=== PATIENT | female | born 1990 | race Caucasian/White ===

== ENCOUNTER 2017-05-25 14:59 | Emergency (ER) | payer MEDICAID ==
[~2017-05-25] VITALS: Ht 149.9 cm; Wt 67.0 kg
[2017-05-25] MEDS ORDERED: normal saline 1000ML IV soln IVB ONE (16:25)
[2017-05-25 16:47] LABS: BASOPHILS % (AUTO) 0.3 % (0-1); EOSINOPHILS # (AUTO) 0.1 X10'3 (0-0.9); EOSINOPHILS % (AUTO) 1.7 % (0-6); HEMATOCRIT 41.8 % (35.0-45.0); HEMOGLOBIN 14.4 g/dl (12.0-16.0); LYMPHOCYTES # (AUTO) 2.3 X10'3 (1.1-4.8); LYMPHOCYTES % (AUTO) 32.2 % (21-51); MEAN CORPUSCULAR HEMOGLOBIN 31.4 PG (27.0-31.0); MEAN CORPUSCULAR HGB CONC 34.6 % (33.0-36.5); MEAN CORPUSCULAR VOLUME 90.9 FL (78-98); MEAN PLATELET VOLUME 6.9 FL (7.4-10.4); MONOCYTES # (AUTO) 0.4 X10'3 (0-0.9); MONOCYTES % (AUTO) 5.1 % (2-12); NEUTROPHILS # (AUTO) 4.3 X10'3 (1.8-7.7); NEUTROPHILS % (AUTO) 60.7 % (42-75); PLATELET COUNT 322 X10'3 (140-440); RED BLOOD COUNT 4.59 X10'6 (4.20-5.60); RED CELL DISTRIBUTION WIDTH 12.4 % (11.5-14.5)
[2017-05-25 17:00] LABS: CLARITY,URINE CLEAR (Clear); COLOR,URINE YELLOW (Yellow); GLUCOSE, URINE NEGATIVE (Neg); KETONES,URINE NEGATIVE (Neg); LEUKOCYTE ESTERASE ,URINE SMALL (Neg); NITRITES, URINE NEGATIVE (Neg); OCCULT BLOOD,URINE LARGE (Neg); PH,URINE 6.5 (4.8-8.0); PROTEIN,URINE NEGATIVE (Neg); UROBILINOGEN,URINE 0.2 E.U/dL (0.2-1.0)
[2017-05-25 17:01] LABS: URINE HCG NEGATIVE (NEG)
[2017-05-25 17:02] LABS: ALANINE AMINOTRANSFERASE 32 U/L (12-78); ALBUMIN 4.8 G/DL (3.4-5.0); ALBUMIN/GLOBULIN RATIO 1.3 (1.1-1.5); ALKALINE PHOSPHATASE 85 IU/L (46-116); ANION GAP 14 (8-16); ASPARTATE AMINO TRANSFERASE 23 U/L (10-37); BILIRUBIN,TOTAL 0.3 MG/DL (0.1-1.0); BLOOD UREA NITROGEN 10 MG/DL (7-18); BUN/CREATININE RATIO 13.5 (6.6-38.0); CALCIUM 10.3 MG/DL (8.5-10.1); CHLORIDE 103 MMOL/L (99-107); CREATININE 0.74 MG/DL (0.40-0.90); GLUCOSE 100 MG/DL (70-104); LIPASE 185 U/L (73-393); SODIUM 142 MMOL/L (135-145); TOTAL CARBON DIOXIDE 25.4 MMOL/L (24-32); TOTAL PROTEIN 8.4 G/DL (6.4-8.2); eGFR > 90 ML/MIN
[2017-05-25 17:05] LABS: UA COLLECTION TYPE CLN CATCH MIDSTREAM
[2017-05-25 17:06] LABS: BACTERIA,URINE NONE SEEN /HPF (Neg); MUCUS STRANDS FEW /LPF (Neg); RBC,URINE 0-2 /HPF (0-2); SQUAMOUS EPITHELIAL CELL,UR MODERATE /LPF (FEW); WBC,URINE 0-4 /HPF (0-4)
[2017-05-25] MEDS ORDERED: ketorolac trometh. 30mg/ml inj. IV ONE (17:50)
[2017-05-25] MEDS ORDERED: ketorolac tromethamine 15mg/ml inj. IV ONE (17:50)
[2017-05-25] MEDS ORDERED: NAPR-56 PO (18:36)
[2017-05-25 19:01] VITALS: BP 130/88
== END 2017-05-25 19:02 | disposition home or self-care (01) ==
LOC: ER 15:00
DX: N94.6 Dysmenorrhea, unspecified (principal)
CPT/HCPCS: 36415; 80053; 81001; 81025; 83690; 85025; 87088; 96361; 96374; 99284; J1885; J7030

== ENCOUNTER 2017-12-19 18:07 | Emergency (ER) | payer MEDICAID ==
[~2017-12-19] VITALS: Ht 502.6 cm; Wt 71.0 kg
[2017-12-19 19:28] LABS: URINE HCG NEGATIVE (NEG)
[2017-12-19 19:31] LABS: CLARITY,URINE CLEAR (Clear); COLOR,URINE YELLOW (Yellow); GLUCOSE, URINE NEGATIVE (Neg); KETONES,URINE NEGATIVE (Neg); LEUKOCYTE ESTERASE ,URINE NEGATIVE (Neg); NITRITES, URINE NEGATIVE (Neg); OCCULT BLOOD,URINE NEGATIVE (Neg); PH,URINE 6.5 (4.8-8.0); PROTEIN,URINE NEGATIVE (Neg); UROBILINOGEN,URINE 0.2 E.U/dL (0.2-1.0)
[2017-12-19 19:34] LABS: UA COLLECTION TYPE CLN CATCH MIDSTREAM
[2017-12-19 21:10] LABS: BASOPHILS % (AUTO) 0.5 % (0-1); EOSINOPHILS # (AUTO) 0.1 X10'3 (0-0.9); EOSINOPHILS % (AUTO) 1.8 % (0-6); HEMATOCRIT 39.5 % (35.0-45.0); HEMOGLOBIN 13.7 g/dl (12.0-16.0); LYMPHOCYTES # (AUTO) 2.9 X10'3 (1.1-4.8); LYMPHOCYTES % (AUTO) 35.5 % (21-51); MEAN CORPUSCULAR HEMOGLOBIN 31.8 PG (27.0-31.0); MEAN CORPUSCULAR HGB CONC 34.8 % (33.0-36.5); MEAN CORPUSCULAR VOLUME 91.5 FL (78-98); MEAN PLATELET VOLUME 6.6 FL (7.4-10.4); MONOCYTES # (AUTO) 0.4 X10'3 (0-0.9); MONOCYTES % (AUTO) 5.2 % (2-12); NEUTROPHILS # (AUTO) 4.6 X10'3 (1.8-7.7); PLATELET COUNT 298 X10'3 (140-440); RED BLOOD COUNT 4.32 X10'6 (4.20-5.60); RED CELL DISTRIBUTION WIDTH 12.2 % (11.5-14.5); WHITE BLOOD COUNT 8.1 X10'3 (4.5-11.0)
[2017-12-19 21:23] LABS: PARTIAL THROMBOPLASTIN TIME 28 SECONDS (22-32); PROTHROMBIN TIME 10.6 SECONDS (9.0-12.0)
[2017-12-19 21:26] LABS: ALANINE AMINOTRANSFERASE 22 U/L (12-78); ALBUMIN 3.9 G/DL (3.4-5.0); ALBUMIN/GLOBULIN RATIO 1.1 (1.1-1.5); ALKALINE PHOSPHATASE 90 IU/L (46-116); ANION GAP 10 (8-16); ASPARTATE AMINO TRANSFERASE 23 U/L (10-37); BILIRUBIN,TOTAL 0.2 MG/DL (0.1-1.0); BLOOD UREA NITROGEN 15 MG/DL (7-18); CALCIUM 9.1 MG/DL (8.5-10.1); CHLORIDE 103 MMOL/L (99-107); CREATININE 0.79 MG/DL (0.40-0.90); GLUCOSE 96 MG/DL (70-104); POTASSIUM 3.8 MMOL/L (3.5-5.1); SODIUM 140 MMOL/L (135-145); TOTAL CARBON DIOXIDE 27.1 MMOL/L (24-32); TOTAL PROTEIN 7.4 G/DL (6.4-8.2); eGFR 87 ML/MIN
[2017-12-19 21:32] LABS: BETA HCG,QUANTITATIVE < 1.0 mIU/ml
[2017-12-19 22:06] VITALS: BP 156/108
== END 2017-12-19 22:09 | disposition home or self-care (01) ==
LOC: ER 18:08
DX: O03.9 Complete or unspecified spontaneous abortion without complication (principal); Z98.890 Other specified postprocedural states; Z3A.09 9 weeks gestation of pregnancy
CPT/HCPCS: 36415; 80053; 81003; 81025; 84702; 85025; 85610; 85730; 86900; 86901; 99284

== ENCOUNTER 2020-04-13 14:48 | Emergency (ER) | payer MEDICAID ==
[~2020-04-13] VITALS: Ht 149.9 cm; Wt 160.0 kg
[2020-04-13 14:55] VITALS: BP 150/115
[2020-04-13 17:02] LABS: BASOPHILS # (AUTO) 0.1 X10'3 (0-0.2); BASOPHILS % (AUTO) 0.6 % (0-1); EOSINOPHILS # (AUTO) 0.2 X10'3 (0-0.9); EOSINOPHILS % (AUTO) 1.9 % (0-6); HEMATOCRIT 37.4 % (35.0-45.0); HEMOGLOBIN 12.9 g/dl (12.0-16.0); LYMPHOCYTES # (AUTO) 3.8 X10'3 (1.1-4.8); LYMPHOCYTES % (AUTO) 42.6 % (21-51); MEAN CORPUSCULAR HEMOGLOBIN 31.9 PG (27.0-31.0); MEAN CORPUSCULAR HGB CONC 34.5 g/dL (33.0-36.5); MEAN CORPUSCULAR VOLUME 92.7 FL (78-98); MEAN PLATELET VOLUME 6.5 FL (7.4-10.4); MONOCYTES # (AUTO) 0.7 X10'3 (0-0.9); MONOCYTES % (AUTO) 7.3 % (2-12); NEUTROPHILS # (AUTO) 4.2 X10'3 (1.8-7.7); NEUTROPHILS % (AUTO) 47.6 % (42-75); PLATELET COUNT 296 X10'3 (140-440); RED BLOOD COUNT 4.03 X10'6 (4.20-5.60); RED CELL DISTRIBUTION WIDTH 14.5 % (11.5-14.5); WHITE BLOOD COUNT 8.9 X10'3 (4.5-11.0)
[2020-04-13 17:19] LABS: ALANINE AMINOTRANSFERASE 35 U/L (12-78); ALBUMIN 3.8 G/DL (3.4-5.0); ALBUMIN/GLOBULIN RATIO 1.2 (1.1-1.5); ALKALINE PHOSPHATASE 96 IU/L (46-116); ANION GAP 9 (8-16); ASPARTATE AMINO TRANSFERASE 17 U/L (10-37); BILIRUBIN,TOTAL 0.2 MG/DL (0.1-1.0); BLOOD UREA NITROGEN 14 MG/DL (7-18); BUN/CREATININE RATIO 21.5 (6.6-38.0); CALCIUM 8.5 MG/DL (8.5-10.1); CHLORIDE 106 MMOL/L (99-107); CREATININE 0.65 MG/DL (0.40-0.90); GLUCOSE 85 MG/DL (70-104); POTASSIUM 4.1 MMOL/L (3.5-5.1); SODIUM 139 MMOL/L (135-145); TOTAL CARBON DIOXIDE 24.5 MMOL/L (24-32); TOTAL PROTEIN 7.1 G/DL (6.4-8.2); eGFR > 90 ML/MIN
== END 2020-04-13 19:37 | disposition left against medical advice (07) ==
LOC: ER 14:48
DX: R10.30 Lower abdominal pain, unspecified (principal); Z53.21 Procedure and treatment not carried out due to patient leaving prior to being seen by health care provider
CPT/HCPCS: 36415; 80053; 85025

== ENCOUNTER 2020-10-04 12:52 | Inpatient (IN) | payer MEDICAID ==
[~2020-10-04] VITALS: Ht 149.9 cm; Wt 71.8 kg
[2020-10-04 13:59] LABS: CLARITY,URINE SLIGHTLY CLOUDY (Clear); COLOR,URINE STRAW (Yellow); GLUCOSE, URINE NEGATIVE (Neg); KETONES,URINE NEGATIVE (Neg); LEUKOCYTE ESTERASE ,URINE NEGATIVE (Neg); NITRITES, URINE NEGATIVE (Neg); OCCULT BLOOD,URINE NEGATIVE (Neg); PROTEIN,URINE NEGATIVE (Neg); UA COLLECTION TYPE CLN CATCH MIDSTREAM; UROBILINOGEN,URINE 0.2 E.U/dL (0.2-1.0)
[2020-10-04 14:07] LABS: SQUAMOUS EPITHELIAL CELL,UR MODERATE /LPF (FEW)
[2020-10-04 14:08] LABS: BACTERIA,URINE FEW /HPF (Neg); RBC,URINE NONE SEEN /HPF (0-2); WBC,URINE 0-4 /HPF (0-4)
[2020-10-04 15:06] LABS: ALANINE AMINOTRANSFERASE 48 U/L (12-78); ALBUMIN 4.2 G/DL (3.4-5.0); ALBUMIN/GLOBULIN RATIO 1.1 (1.1-1.5); ALKALINE PHOSPHATASE 128 IU/L (46-116); ANION GAP 9 (8-16); ASPARTATE AMINO TRANSFERASE 30 U/L (10-37); BILIRUBIN,TOTAL 0.3 MG/DL (0.1-1.0); BLOOD UREA NITROGEN 15 MG/DL (7-18); BUN/CREATININE RATIO 20.8 (6.6-38.0); CALCIUM 8.7 MG/DL (8.5-10.1); CHLORIDE 104 MMOL/L (99-107); CREATININE 0.72 MG/DL (0.40-0.90); GLUCOSE 85 MG/DL (70-104); LIPASE 140 U/L (73-393); POTASSIUM 4.2 MMOL/L (3.5-5.1); SODIUM 139 MMOL/L (135-145); TOTAL CARBON DIOXIDE 26.4 MMOL/L (24-32); TOTAL PROTEIN 7.9 G/DL (6.4-8.2); eGFR > 90 ML/MIN
[2020-10-04 15:07] LABS: BASOPHILS % (AUTO) 0.6 % (0-1); EOSINOPHILS # (AUTO) 0.2 X10'3 (0-0.9); EOSINOPHILS % (AUTO) 3.2 % (0-6); HEMATOCRIT 37.7 % (35.0-45.0); HEMOGLOBIN 12.8 g/dl (12.0-16.0); LYMPHOCYTES # (AUTO) 2.7 X10'3 (1.1-4.8); LYMPHOCYTES % (AUTO) 37.2 % (21-51); MEAN CORPUSCULAR HEMOGLOBIN 30.8 PG (27.0-31.0); MEAN CORPUSCULAR VOLUME 90.7 FL (78-98); MEAN PLATELET VOLUME 6.8 FL (7.4-10.4); MONOCYTES # (AUTO) 0.4 X10'3 (0-0.9); NEUTROPHILS # (AUTO) 3.9 X10'3 (1.8-7.7); PLATELET COUNT 282 X10'3 (140-440); RED BLOOD COUNT 4.15 X10'6 (4.20-5.60); RED CELL DISTRIBUTION WIDTH 13.1 % (11.5-14.5); WHITE BLOOD COUNT 7.2 X10'3 (4.5-11.0)
--- NOTE | 2020-10-04 15:14 | NUR ---
pt to room, assumed care.
[2020-10-04] MEDS ORDERED: ondansetron/PF 4mg/2ml inj IV ONE ×2 (15:25→19:15)
[2020-10-04] MEDS ORDERED: normal saline 1000ML IV soln IVB ONE (15:25)
[2020-10-04] MEDS: morphine 4 MG/ML inj SYRINge IV PRN ×2 (15:35→18:27)
[2020-10-04] MEDS ORDERED: iohexol 350MG/ML 100ml bottle IV ONE (15:50)
[2020-10-04] MEDS ORDERED: fentaNYL/PF 50MCG/1 ML 2ML syringe IV ONE ×2 (17:20→19:15)
[2020-10-04] MEDS ORDERED: ALBU8.5H8 IH (17:41)
[2020-10-04] MEDS ORDERED: ALPR2TAB7 PO (17:41)
[2020-10-04] MEDS ORDERED: TRAZ-256 PO (17:41)
[2020-10-04] MEDS ORDERED: magnesium 4gm in 100ml NS 100 ML IV PRN (19:40)
[2020-10-04] MEDS ORDERED: bisacodyl 10mg suppository rectal RC PRN (19:40)
[2020-10-04] MEDS ORDERED: magnesium 2GM in 50ml NS 50 ML IV PRN (19:40)
[2020-10-04] MEDS ORDERED: HYDROmorphone inj. 0.5 MG/0.5 ML DISP.SYRIN IV PRN ×2 (19:40→20:55)
[2020-10-04] MEDS ORDERED: potassium Cl 20 mEq SR tablet PO PRN ×2 (19:40)
[2020-10-04] MEDS ORDERED: potassium Cl 40MEQ/1/2NS 520ml 520 ML IV PRN ×2 (19:40)
[2020-10-04] MEDS ORDERED: acetaminophen 325mg tablet PO PRN (19:40)
[2020-10-04] MEDS: normal saline 1000ml 1,000 ML IV SCH (19:58)
[2020-10-04] MEDS: K and/or MAG REPLACEMENT MC SCH (20:00)
[2020-10-04] MEDS: vancomycin/NS 1 GM ADD-VANTAGE 250 ML IV SCH (20:09)
[2020-10-04] MEDS ORDERED: oxyCODONE/APAP 10/325mg tablet PO PRN (20:55)
[2020-10-04] MEDS: ALPRAZolam 0.5mg tablet PO PRN (23:46)
[2020-10-05] VITALS (8 sets, daily range): BP systolic 103–148; BP diastolic 56–84
--- NOTE | 2020-10-05 01:34 | NUR ---
pt denies needs, resting in bed.
[2020-10-05] MEDS: ketorolac trometh. 30mg/ml inj. IV SCH ×4 (02:00→20:40)
--- NOTE | 2020-10-05 03:02 | NUR ---
report given to Marcel Beckman
[2020-10-05 05:42] LABS: URINE HCG NEGATIVE (NEG)
[2020-10-05] MEDS: normal saline 1000ml 1,000 ML IV SCH ×3 (06:01→06:03)
[2020-10-05] MEDS: oxyCODONE/APAP 10/325mg tablet PO PRN ×2 (06:29→14:49)
[2020-10-05] MEDS: HYDROmorphone 1 mg/ml syringe IV PRN ×5 (07:36→22:18)
[2020-10-05] MEDS: vancomycin/NS 1 GM ADD-VANTAGE 250 ML IV SCH ×2 (07:37→20:39)
[2020-10-05] MEDS: K and/or MAG REPLACEMENT MC SCH ×2 (08:00→20:00)
[2020-10-05] MEDS: piperacillin/tazo 4.5gm/100ml 100 ML IV SCH ×4 (08:00→23:51)
--- NOTE | 2020-10-05 08:15 | NUR ---
called to give report, RN not avail
[2020-10-05 08:17] LABS: BASOPHILS % (AUTO) 0.6 % (0-1); EOSINOPHILS # (AUTO) 0.2 X10'3 (0-0.9); HEMATOCRIT 34.3 % (35.0-45.0); HEMOGLOBIN 11.5 g/dl (12.0-16.0); LYMPHOCYTES # (AUTO) 1.8 X10'3 (1.1-4.8); LYMPHOCYTES % (AUTO) 30.5 % (21-51); MEAN CORPUSCULAR HEMOGLOBIN 30.7 PG (27.0-31.0); MEAN CORPUSCULAR HGB CONC 33.6 g/dL (33.0-36.5); MEAN CORPUSCULAR VOLUME 91.3 FL (78-98); MEAN PLATELET VOLUME 6.5 FL (7.4-10.4); MONOCYTES # (AUTO) 0.3 X10'3 (0-0.9); MONOCYTES % (AUTO) 5.2 % (2-12); NEUTROPHILS # (AUTO) 3.6 X10'3 (1.8-7.7); NEUTROPHILS % (AUTO) 60.7 % (42-75); PLATELET COUNT 230 X10'3 (140-440); RED BLOOD COUNT 3.75 X10'6 (4.20-5.60); RED CELL DISTRIBUTION WIDTH 13.2 % (11.5-14.5)
[2020-10-05 08:52] LABS: ALANINE AMINOTRANSFERASE 38 U/L (12-78); ALBUMIN 3.4 G/DL (3.4-5.0); ALBUMIN/GLOBULIN RATIO 1.1 (1.1-1.5); ALKALINE PHOSPHATASE 103 IU/L (46-116); ANION GAP 11 (8-16); ASPARTATE AMINO TRANSFERASE 23 U/L (10-37); BILIRUBIN,TOTAL 0.4 MG/DL (0.1-1.0); BLOOD UREA NITROGEN 9 MG/DL (7-18); BUN/CREATININE RATIO 13.6 (6.6-38.0); CHLORIDE 108 MMOL/L (99-107); CREATININE 0.66 MG/DL (0.40-0.90); GLUCOSE 76 MG/DL (70-104); MAGNESIUM 1.9 MG/DL (1.5-2.4); POTASSIUM 3.9 MMOL/L (3.5-5.1); SODIUM 142 MMOL/L (135-145); TOTAL CARBON DIOXIDE 23.2 MMOL/L (24-32); TOTAL PROTEIN 6.6 G/DL (6.4-8.2); eGFR > 90 ML/MIN
[2020-10-05] MEDS ORDERED: midazolam 1 mg/ML 2ml injection ONE (13:29)
[2020-10-05] MEDS ORDERED: fentaNYL/PF 50MCG/1 ML 2ML syringe ONE (13:29)
--- NOTE | 2020-10-05 13:49 | NUR ---
Patient's IV is not working properly. It is pink and alarming high pressure. Patient is a hard stick and is currently off floor in IR
--- NOTE | 2020-10-05 14:44 | NUR ---
PAGER ID: [phone] MESSAGE: [id number] RE: [facility] Please call
--- NOTE | 2020-10-05 16:26 | NUR ---
Spoke with pharmacist Paul about the patient her 9 mos old baby. Went through each medication with him and received the clear to allow patient to safely feed her baby. Zosyn, Vancomycin, Percocet, Dilaudid, and ketorolac.
[2020-10-05] MEDS: ondansetron/PF 4mg/2ml inj IV PRN ×2 (16:37→22:24)
--- NOTE | 2020-10-05 18:20 | NUR ---
Problems reprioritized. Patient report given, questions answered & plan of care reviewed with Jairo WYLIE.
[2020-10-05] MEDS: traZODone 50mg tablet PO SCH (21:00)
[2020-10-05] MEDS: ALPRAZolam 0.5mg tablet PO PRN (22:24)
[2020-10-06] VITALS: BP 114/75
[2020-10-06] MEDS: traZODone 50mg tablet PO SCH (00:03)
[2020-10-06] MEDS: ketorolac trometh. 30mg/ml inj. IV SCH ×2 (02:13→08:00)
[2020-10-06] MEDS: HYDROmorphone 1 mg/ml syringe IV PRN (02:13)
--- NOTE | 2020-10-06 06:51 | NUR ---
Patient in room [facility]. I have received report from Jairo WYLIE and had the opportunity to ask questions and assume patient care.
--- NOTE | 2020-10-06 06:53 | NUR ---
Problems reprioritized. Patient report given, questions answered & plan of care reviewed with ALECIA. Addendum: 10/06/20 at 0653 by Leonardo Leach RN Amended: Links added.
[2020-10-06 07:00] VITALS: BP 112/70
[2020-10-06] MEDS ORDERED: VANCOMYCIN LEVEL IV ONE (07:30)
[2020-10-06 07:43] LABS: BASOPHILS % (AUTO) 0.6 % (0-1); EOSINOPHILS # (AUTO) 0.2 X10'3 (0-0.9); EOSINOPHILS % (AUTO) 3.1 % (0-6); HEMATOCRIT 31.8 % (35.0-45.0); HEMOGLOBIN 10.9 g/dl (12.0-16.0); LYMPHOCYTES # (AUTO) 1.8 X10'3 (1.1-4.8); LYMPHOCYTES % (AUTO) 28.1 % (21-51); MEAN CORPUSCULAR HEMOGLOBIN 30.9 PG (27.0-31.0); MEAN CORPUSCULAR HGB CONC 34.2 g/dL (33.0-36.5); MEAN CORPUSCULAR VOLUME 90.3 FL (78-98); MEAN PLATELET VOLUME 6.5 FL (7.4-10.4); MONOCYTES # (AUTO) 0.4 X10'3 (0-0.9); MONOCYTES % (AUTO) 5.8 % (2-12); NEUTROPHILS # (AUTO) 3.9 X10'3 (1.8-7.7); NEUTROPHILS % (AUTO) 62.4 % (42-75); PLATELET COUNT 190 X10'3 (140-440); RED BLOOD COUNT 3.52 X10'6 (4.20-5.60); RED CELL DISTRIBUTION WIDTH 12.7 % (11.5-14.5); WHITE BLOOD COUNT 6.3 X10'3 (4.5-11.0)
[2020-10-06 08:00] LABS: ALANINE AMINOTRANSFERASE 34 U/L (12-78); ALBUMIN 3.1 G/DL (3.4-5.0); ALBUMIN/GLOBULIN RATIO 1.1 (1.1-1.5); ALKALINE PHOSPHATASE 90 IU/L (46-116); ANION GAP 9 (8-16); ASPARTATE AMINO TRANSFERASE 19 U/L (10-37); BILIRUBIN,TOTAL 0.3 MG/DL (0.1-1.0); BLOOD UREA NITROGEN 10 MG/DL (7-18); BUN/CREATININE RATIO 17.5 (6.6-38.0); CHLORIDE 107 MMOL/L (99-107); CREATININE 0.57 MG/DL (0.40-0.90); GLUCOSE 102 MG/DL (70-104); POTASSIUM 3.6 MMOL/L (3.5-5.1); SODIUM 140 MMOL/L (135-145); TOTAL CARBON DIOXIDE 23.7 MMOL/L (24-32); eGFR > 90 ML/MIN
[2020-10-06] MEDS: piperacillin/tazo 4.5gm/100ml 100 ML IV SCH (08:00)
[2020-10-06 08:03] LABS: MAGNESIUM 1.6 MG/DL (1.5-2.4); VANCOMYCIN,TROUGH 8.4 UG/ML (6.0-14.0)
[2020-10-06] MEDS: K and/or MAG REPLACEMENT MC SCH (08:25)
[2020-10-06] MEDS ORDERED: ondansetron 4mg rapidly disintigrating tab PO ONE (09:10)
[2020-10-06] MEDS: oxyCODONE/APAP 10/325mg tablet PO PRN (09:27)
[2020-10-06] MEDS ORDERED: LEVO500T89 PO (10:35)
[2020-10-06] MEDS: ALPRAZolam 0.5mg tablet PO PRN (11:33)
[2020-10-06] MEDS: normal saline 1000ml 1,000 ML IV SCH (11:40)
[2020-10-06] MEDS ORDERED: HYDR-3965 PO (11:57)
[2020-10-06] MEDS ORDERED: ONDA4TAB6 PO (12:06)
--- NOTE | 2020-10-06 12:50 | NUR ---
Patient was educated on medications, follow-up care, and worsening symptoms. Patient's medications were sent to [facility] [place] on [facility]. Patient was given prescription for pain medication. Stressed the importance of following up with the OBGYN and PCP. And to return to the ER if symptoms worsen or develops signs or symptoms of an infection. IV was removed earlier that day and canula was intact. Patient was taken down by auxillary to ride, which was her .
[2020-10-07] MEDS ORDERED: VANCOMYCIN LEVEL IV ONE (20:30)
== END 2020-10-06 12:25 | disposition home or self-care (01) | DRG 531 ==
LOC: ER 12:53 → ED HOLD 19:36 → SUR 3N 10-05 09:10
PROVIDERS: ADMIT Family Medicine; ATTEND Family Medicine
PROC: BW211ZZ Computerized Tomography (CT Scan) of Abdomen and Pelvis using Low Osmolar Contrast (ICD-10-PCS; 2020-10-04)
PROC: 0W9J3ZZ Drainage of Pelvic Cavity, Percutaneous Approach (ICD-10-PCS; principal; 2020-10-05)
DX: N73.9 Female pelvic inflammatory disease, unspecified (principal); F41.9 Anxiety disorder, unspecified; M54.5 Low back pain; Z82.3 Family history of stroke; Z90.5 Acquired absence of kidney; Z90.710 Acquired absence of both cervix and uterus; Z98.891 History of uterine scar from previous surgery; Z88.8 Allergy status to other drugs, medicaments and biological substances; Z98.51 Tubal ligation status; Z79.899 Other long term (current) drug therapy; Z86.16 Personal history of COVID-19
CPT/HCPCS: 36415; 49406; 74177; 80053; 80202; 81001; 81025; 83605; 83690; 83735; 85025; 87040; 87070; 96374; 96375; 96376; 99152; 99153; 99285; G0378; J1170; J1885; J2250; J2270; J2405; J2543; J3010; J3370; J7030; Q9967

== ENCOUNTER 2020-11-13 11:13 | Emergency (ER) | payer MEDICAID ==
[~2020-11-13] VITALS: Ht 149.9 cm; Wt 74.2 kg
[~2020-11-13 11:13] MED LIST: ALBU8.5H17 IH; ALPR2TAB7 PO; ONDA4TAB6 PO; TRAZ-256 PO
[2020-11-13 13:17] LABS: BASOPHILS % (AUTO) 0.5 % (0-1); EOSINOPHILS # (AUTO) 0.3 X10'3 (0-0.9); HEMATOCRIT 35.9 % (35.0-45.0); HEMOGLOBIN 12.1 g/dl (12.0-16.0); LYMPHOCYTES % (AUTO) 32.1 % (21-51); MEAN CORPUSCULAR HEMOGLOBIN 30.7 PG (27.0-31.0); MEAN CORPUSCULAR HGB CONC 33.8 g/dL (33.0-36.5); MEAN PLATELET VOLUME 6.4 FL (7.4-10.4); MONOCYTES # (AUTO) 0.3 X10'3 (0-0.9); NEUTROPHILS # (AUTO) 3.7 X10'3 (1.8-7.7); NEUTROPHILS % (AUTO) 58.4 % (42-75); PLATELET COUNT 261 X10'3 (140-440); RED BLOOD COUNT 3.95 X10'6 (4.20-5.60); RED CELL DISTRIBUTION WIDTH 13.3 % (11.5-14.5); WHITE BLOOD COUNT 6.3 X10'3 (4.5-11.0)
[2020-11-13 13:30] LABS: ALANINE AMINOTRANSFERASE 110 U/L (12-78); ALBUMIN 3.6 G/DL (3.4-5.0); ALBUMIN/GLOBULIN RATIO 0.9 (1.1-1.5); ALKALINE PHOSPHATASE 227 IU/L (46-116); ANION GAP 13 (8-16); BILIRUBIN,TOTAL 0.2 MG/DL (0.1-1.0); BLOOD UREA NITROGEN 8 MG/DL (7-18); BUN/CREATININE RATIO 9.5 (6.6-38.0); CALCIUM 8.9 MG/DL (8.5-10.1); CHLORIDE 104 MMOL/L (99-107); CREATININE 0.84 MG/DL (0.40-0.90); GLUCOSE 154 MG/DL (70-104); POTASSIUM 3.7 MMOL/L (3.5-5.1); SODIUM 141 MMOL/L (135-145); TOTAL PROTEIN 7.5 G/DL (6.4-8.2); eGFR 80 ML/MIN
[2020-11-13 13:40] LABS: ASPARTATE AMINO TRANSFERASE 35 U/L (10-37)
[2020-11-13 14:43] LABS: CLARITY,URINE SLIGHTLY CLOUDY (Clear); COLOR,URINE YELLOW (Yellow); GLUCOSE, URINE NEGATIVE (Neg); KETONES,URINE NEGATIVE (Neg); LEUKOCYTE ESTERASE ,URINE NEGATIVE (Neg); NITRITES, URINE NEGATIVE (Neg); OCCULT BLOOD,URINE NEGATIVE (Neg); PROTEIN,URINE NEGATIVE (Neg); UROBILINOGEN,URINE 0.2 E.U/dL (0.2-1.0)
[2020-11-13 14:45] LABS: UA COLLECTION TYPE CLN CATCH MIDSTREAM
[2020-11-13 14:50] LABS: BACTERIA,URINE FEW /HPF (Neg); SQUAMOUS EPITHELIAL CELL,UR MANY /LPF (FEW)
[2020-11-13 14:51] LABS: RBC,URINE 0-2 /HPF (0-2); WBC,URINE 0-4 /HPF (0-4)
[2020-11-13] MEDS ORDERED: iohexol 300mg/ml 100ml inj. ONE (16:07)
[2020-11-13] MEDS ORDERED: LEVO500T89 PO (17:02)
--- NOTE | 2020-11-13 17:16 | NUR ---
rapid assessment done on patient, as pt was given a full work up prior to setting up in room
[2020-11-13 17:24] VITALS: BP 119/81
== END 2020-11-13 17:20 | disposition home or self-care (01) ==
LOC: ER 11:14
DX: G89.18 Other acute postprocedural pain (principal); R10.31 Right lower quadrant pain; R11.10 Vomiting, unspecified; R68.83 Chills (without fever); Z90.710 Acquired absence of both cervix and uterus; Z98.890 Other specified postprocedural states; Z88.8 Allergy status to other drugs, medicaments and biological substances; Z79.2 Long term (current) use of antibiotics; Z79.899 Other long term (current) drug therapy
CPT/HCPCS: 36415; 71045; 74177; 80053; 81001; 83605; 84145; 85025; 87040; 99285; Q9967

== ENCOUNTER 2021-03-23 10:09 | Emergency (ER) | payer MEDICAID ==
[~2021-03-23] VITALS: Ht 149.9 cm; Wt 70.5 kg
[2021-03-23 10:42] VITALS: BP 128/89
[2021-03-23] MEDS ORDERED: AMOX-117 PO (12:02)
== END 2021-03-23 13:34 | disposition home or self-care (01) ==
LOC: ER 10:10
DX: J01.90 Acute sinusitis, unspecified (principal); Z20.822 Contact with and (suspected) exposure to COVID-19; R11.10 Vomiting, unspecified; R05.9 Cough, unspecified; R51.9 Headache, unspecified; R50.9 Fever, unspecified; Z90.710 Acquired absence of both cervix and uterus; Z98.890 Other specified postprocedural states; Z88.8 Allergy status to other drugs, medicaments and biological substances; Z79.2 Long term (current) use of antibiotics; Z79.899 Other long term (current) drug therapy
CPT/HCPCS: 71045; 87635; 99284; C9803

== ENCOUNTER 2021-04-06 09:21 | Emergency (ER) | payer MEDICAID ==
[~2021-04-06] VITALS: Ht 149.9 cm; Wt 75.8 kg
[2021-04-06 09:49] VITALS: BP 147/97
[2021-04-06] MEDS ORDERED: HYDR28CR14 TOP (09:53)
[2021-04-06] MEDS ORDERED: triamcinolone acetonide 40mg/ml inj IM ONE (09:55)
== END 2021-04-06 10:12 | disposition home or self-care (01) ==
LOC: ER 09:21
DX: T78.40XA Allergy, unspecified, initial encounter (principal); R21 Rash and other nonspecific skin eruption; Z90.710 Acquired absence of both cervix and uterus; Z98.890 Other specified postprocedural states; Z88.8 Allergy status to other drugs, medicaments and biological substances; Z79.899 Other long term (current) drug therapy; Y92.89 Other specified places as the place of occurrence of the external cause
CPT/HCPCS: 96372; 99283; J3301

== ENCOUNTER 2021-09-21 11:53 | Emergency (ER) | payer MEDICAID ==
[~2021-09-21] VITALS: Ht 149.9 cm; Wt 61.4 kg
[~2021-09-21 11:53] MED LIST changes: +HYDR28CR14 TOP
[2021-09-21] MEDS ORDERED: normal saline 1000ML IV soln IVB ONE (12:50)
[2021-09-21 13:12] LABS: BASOPHILS % (AUTO) 0.2 % (0-1); EOSINOPHILS % (AUTO) 0.1 % (0-6); HEMATOCRIT 39.7 % (35.0-45.0); HEMOGLOBIN 13.6 g/dl (12.0-16.0); LYMPHOCYTES # (AUTO) 1.3 X10'3 (1.1-4.8); LYMPHOCYTES % (AUTO) 14.7 % (21-51); MEAN CORPUSCULAR HEMOGLOBIN 30.8 PG (27.0-31.0); MEAN CORPUSCULAR HGB CONC 34.2 g/dL (33.0-36.5); MEAN PLATELET VOLUME 6.5 FL (7.4-10.4); MONOCYTES # (AUTO) 0.2 X10'3 (0-0.9); MONOCYTES % (AUTO) 2.1 % (2-12); NEUTROPHILS # (AUTO) 7.4 X10'3 (1.8-7.7); NEUTROPHILS % (AUTO) 82.9 % (42-75); PLATELET COUNT 337 X10'3 (140-440); RED BLOOD COUNT 4.41 X10'6 (4.20-5.60); RED CELL DISTRIBUTION WIDTH 12.7 % (11.5-14.5); WHITE BLOOD COUNT 8.9 X10'3 (4.5-11.0)
[2021-09-21 13:18] LABS: D-DIMER 0.77 MG/L FEU (0-0.50)
[2021-09-21 13:28] LABS: URINE HCG NEGATIVE (NEG)
[2021-09-21 13:32] LABS: ALANINE AMINOTRANSFERASE 28 U/L (12-78); ALKALINE PHOSPHATASE 78 IU/L (46-116); ANION GAP 11 (8-16); ASPARTATE AMINO TRANSFERASE 21 U/L (10-37); BILIRUBIN,TOTAL 0.3 MG/DL (0.1-1.0); BLOOD UREA NITROGEN 10 MG/DL (7-18); BUN/CREATININE RATIO 12.7 (6.6-38.0); CALCIUM 9.6 MG/DL (8.5-10.1); CHLORIDE 103 MMOL/L (99-107); CREATININE 0.79 MG/DL (0.40-0.90); GLUCOSE 122 MG/DL (70-104); MAGNESIUM 2.1 MG/DL (1.5-2.4); SODIUM 141 MMOL/L (135-145); TOTAL CARBON DIOXIDE 26.9 MMOL/L (24-32); TOTAL PROTEIN 8.1 G/DL (6.4-8.2); eGFR 85 ML/MIN
[2021-09-21] MEDS ORDERED: ringers solution, lactated 1000ml IV soln IV ONE (14:15)
[2021-09-21] MEDS ORDERED: ketorolac trometh. 30mg/ml inj. IV ONE (14:15)
[2021-09-21 16:36] VITALS: BP 135/91
== END 2021-09-21 16:30 | disposition home or self-care (01) ==
LOC: ER 11:53
DX: U07.1 COVID-19 (principal); E86.0 Dehydration; Z98.890 Other specified postprocedural states; Z88.8 Allergy status to other drugs, medicaments and biological substances; Z79.899 Other long term (current) drug therapy
CPT/HCPCS: 36415; 71045; 71275; 80053; 81025; 83735; 85025; 85379; 93005; 96361; 96374; 99285; J1885; J3490; J7030; J7120

== ENCOUNTER 2021-11-09 10:31 | Emergency (ER) | payer MEDICAID ==
[~2021-11-09] VITALS: Ht 149.9 cm; Wt 60.5 kg
[2021-11-09 11:20] LABS: BASOPHILS % (AUTO) 0.4 % (0-1); EOSINOPHILS % (AUTO) 0.3 % (0-6); HEMATOCRIT 41.6 % (35.0-45.0); HEMOGLOBIN 14.5 g/dl (12.0-16.0); LYMPHOCYTES # (AUTO) 1.4 X10'3 (1.1-4.8); MEAN CORPUSCULAR HEMOGLOBIN 31.7 PG (27.0-31.0); MEAN CORPUSCULAR HGB CONC 34.8 g/dL (33.0-36.5); MEAN CORPUSCULAR VOLUME 91.1 FL (78-98); MEAN PLATELET VOLUME 6.8 FL (7.4-10.4); MONOCYTES # (AUTO) 0.4 X10'3 (0-0.9); MONOCYTES % (AUTO) 4.6 % (2-12); NEUTROPHILS # (AUTO) 6.8 X10'3 (1.8-7.7); NEUTROPHILS % (AUTO) 78.7 % (42-75); PLATELET COUNT 283 X10'3 (140-440); RED BLOOD COUNT 4.57 X10'6 (4.20-5.60); WHITE BLOOD COUNT 8.6 X10'3 (4.5-11.0)
[2021-11-09 11:36] LABS: ALANINE AMINOTRANSFERASE 33 U/L (12-78); ALBUMIN 4.6 G/DL (3.4-5.0); ALBUMIN/GLOBULIN RATIO 1.2 (1.1-1.5); ALKALINE PHOSPHATASE 73 IU/L (46-116); ANION GAP 10 (8-16); ASPARTATE AMINO TRANSFERASE 29 U/L (10-37); BILIRUBIN,TOTAL 0.4 MG/DL (0.1-1.0); BLOOD UREA NITROGEN 11 MG/DL (7-18); BUN/CREATININE RATIO 12.6 (6.6-38.0); CALCIUM 9.3 MG/DL (8.5-10.1); CHLORIDE 104 MMOL/L (99-107); CREATININE 0.87 MG/DL (0.40-0.90); GLUCOSE 131 MG/DL (70-104); POTASSIUM 3.5 MMOL/L (3.5-5.1); SODIUM 138 MMOL/L (135-145); TOTAL CARBON DIOXIDE 23.8 MMOL/L (24-32); TOTAL PROTEIN 8.4 G/DL (6.4-8.2); eGFR 76 ML/MIN
== END 2021-11-09 18:26 | disposition home or self-care (01) ==
LOC: ER 10:32
DX: Z00.00 Encounter for general adult medical examination without abnormal findings (principal); I10 Essential (primary) hypertension; Z88.8 Allergy status to other drugs, medicaments and biological substances; Z98.890 Other specified postprocedural states; Z90.710 Acquired absence of both cervix and uterus
CPT/HCPCS: 36415; 70450; 71045; 80053; 82948; 83880; 84484; 85025; 93005; 99285

== ENCOUNTER 2022-02-07 08:50 | Emergency (ER) | payer MEDICAID ==
[~2022-02-07] VITALS: Ht 149.9 cm; Wt 57.7 kg
[2022-02-07 08:55] VITALS: BP 160/92
[2022-02-07] MEDS ORDERED: CYCL-1 PO (10:39)
[2022-02-07] MEDS ORDERED: IBUP-1986 PO (10:39)
[2022-02-07] MEDS ORDERED: ketorolac trometh inj. 60 MG/2 ML VIAL IM ONE (10:44)
== END 2022-02-07 11:02 | disposition home or self-care (01) ==
LOC: ER 08:50
DX: S39.012A Strain of muscle, fascia and tendon of lower back, initial encounter (principal); M54.50 Low back pain, unspecified; I10 Essential (primary) hypertension; F41.9 Anxiety disorder, unspecified; Z90.710 Acquired absence of both cervix and uterus; Z98.890 Other specified postprocedural states; Z88.8 Allergy status to other drugs, medicaments and biological substances; Z79.899 Other long term (current) drug therapy; X58.XXXA Exposure to other specified factors, initial encounter; Y93.89 Activity, other specified; Y92.89 Other specified places as the place of occurrence of the external cause; Y99.8 Other external cause status
CPT/HCPCS: 96372; 99283; J1885

== ENCOUNTER 2022-04-21 10:55 | Emergency (ER) | payer MEDICAID, OTHER ==
[~2022-04-21] VITALS: Ht 149.9 cm; Wt 59.1 kg
[~2022-04-21 10:55] MED LIST changes: +CYCL-1 PO; +IBUP-1986 PO
[2022-04-21 11:09] VITALS: BP 126/84
[2022-04-21] MEDS ORDERED: ketorolac trometh. 30mg/ml inj. IM ONE (12:00)
[2022-04-21] MEDS ORDERED: CYCL-1 PO (12:26)
== END 2022-04-21 12:39 | disposition home or self-care (01) ==
LOC: ER 10:55
DX: M54.41 Lumbago with sciatica, right side (principal); M54.59 Other low back pain; I10 Essential (primary) hypertension; F41.9 Anxiety disorder, unspecified; Z88.6 Allergy status to analgesic agent; Z79.899 Other long term (current) drug therapy; Z91.018 Allergy to other foods
CPT/HCPCS: 96372; 99283; J1885

== ENCOUNTER 2022-06-14 10:51 | Emergency (ER) | payer MEDICAID, OTHER ==
[~2022-06-14] VITALS: Ht 149.9 cm; Wt 60.5 kg
[2022-06-14 10:58] VITALS: BP 165/103
[2022-06-14] MEDS ORDERED: penicillin V potassium 500mg tablet PO ONE (11:50)
[2022-06-14] MEDS ORDERED: HYDROcodone/acetaminophen 5mg/325mg tablet PO ONE (11:50)
[2022-06-14] MEDS ORDERED: HYDR-3965 PO (12:04)
[2022-06-14] MEDS ORDERED: PENI-88 PO (12:04)
== END 2022-06-14 12:26 | disposition home or self-care (01) ==
LOC: ER 10:51
DX: K04.7 Periapical abscess without sinus (principal); I10 Essential (primary) hypertension; F41.9 Anxiety disorder, unspecified; Z90.710 Acquired absence of both cervix and uterus; Z98.890 Other specified postprocedural states; Z88.1 Allergy status to other antibiotic agents; Z88.8 Allergy status to other drugs, medicaments and biological substances; Z91.013 Allergy to seafood; Z79.899 Other long term (current) drug therapy
CPT/HCPCS: 99283

== ENCOUNTER 2022-07-28 17:52 | Emergency (ER) | payer OTHER, MEDICAID ==
[~2022-07-28] VITALS: Ht 149.9 cm; Wt 65.0 kg
[2022-07-28 17:56] VITALS: BP 158/100
[2022-07-28] MEDS ORDERED: METH4TAB81 PO (18:40)
== END 2022-07-28 18:52 | disposition home or self-care (01) ==
LOC: ER 17:54
DX: G89.29 Other chronic pain (principal); M54.59 Other low back pain; I10 Essential (primary) hypertension; F41.9 Anxiety disorder, unspecified; Z88.8 Allergy status to other drugs, medicaments and biological substances; Z79.899 Other long term (current) drug therapy; Z91.013 Allergy to seafood; Z88.1 Allergy status to other antibiotic agents; Z79.2 Long term (current) use of antibiotics
CPT/HCPCS: 99283

== ENCOUNTER 2024-01-31 13:06 | Emergency (ER) | payer MEDICAID, OTHER ==
[~2024-01-31] VITALS: Ht 149.9 cm; Wt 65.9 kg
[~2024-01-31 13:06] MED LIST changes: +METH4TAB81 PO
[2024-01-31 13:07] VITALS: BP 148/100; PULSE 99; RESP 16; TEMP 97.4; O2SAT 99
== END 2024-01-31 16:21 | disposition home or self-care (01) ==
LOC: ER 13:06
DX: S93.601A Unspecified sprain of right foot, initial encounter (principal); I10 Essential (primary) hypertension; F41.9 Anxiety disorder, unspecified; Z88.8 Allergy status to other drugs, medicaments and biological substances; Z88.1 Allergy status to other antibiotic agents; Z91.013 Allergy to seafood; Z79.1 Long term (current) use of non-steroidal anti-inflammatories (NSAID); Z79.51 Long term (current) use of inhaled steroids; Z79.899 Other long term (current) drug therapy; Z90.710 Acquired absence of both cervix and uterus; X50.1XXA Overexertion from prolonged static or awkward postures, initial encounter; Y93.89 Activity, other specified; Y92.89 Other specified places as the place of occurrence of the external cause; Y99.8 Other external cause status
CPT/HCPCS: 73630; 99283; L4360

== ENCOUNTER 2024-08-21 15:31 | Outpatient (CLI) | payer MEDICAID ==
--- NOTE | 2024-08-21 16:27 | RADIOLOGY REPORT ---
DI FOOT, COMPLETE (3VW MIN), 08/21/2024 at 4:02 p.m. INDICATION: RIGHT ANKLE PAIN TECHNICAL DATA: Frontal, oblique and lateral views were obtained of the left foot. COMPARISON: DI FOOT, COMPLETE (3VW MIN) on DOS: 01/31/24 FINDINGS: No fracture is identified. Joint spaces are maintained. Alignment is anatomic. The hallux sesamoids a ppear normal. Soft tissues are within normal limits. There is mild osteopenia. IMPRESSION: 1. No acute fracture or dislocation of the left foot.
--- NOTE | 2024-08-21 16:29 | RADIOLOGY REPORT ---
DI ANKLE, COMPLETE(3VW MIN), 08/21/2024 at 4:02 p.m. INDICATION: RIGHT ANKLE PAIN TECHNICAL DATA:Frontal , oblique and lateral views were obtained of the left ankle. COMPARISON: None FINDINGS: No fracture is identified. Joint spaces are maintained. Alignment is anatomic. Soft tissues are wit hin normal limit. IMPRESSION: 1. No acute fracture or dislocation of the left ankle.
== END 2024-08-22 23:59 | disposition home or self-care (01) ==
LOC: RAD 15:31
DX: M25.571 Pain in right ankle and joints of right foot (principal)
CPT/HCPCS: 73610; 73630

== ENCOUNTER 2024-10-02 17:58 | Emergency (ER) | payer MEDICAID ==
[~2024-10-02] VITALS: Ht 149.9 cm; Wt 68.0 kg
--- NOTE | 2024-10-02 20:57 | Physician Documentation ---
History of Present Illness ~ Chief Complaint: See Chief Complaint Stated Complaint: MASS Time Seen by MD: 20:41 Primary Medical Doctor: [facility] Mode of Arrival: POV, Ambulatory HPI Patient presents to the emergency room with central chest pain. She states symptoms began in 2020 after she had a uterine prolapse. Since that time she has had problems and feels she has had a mass around her sternum. She has seen her primary care provider for said complaint and has a CT scan ordered. She is concerned because she has increased pain to this area over the past few days. Taking ibuprofen and Tylenol for pain. Pain is exacerbated with movement coughing taking deep breaths and palpation. Pain is over her lower sternum and right costal border. She does endorse increase activity with swimming and weights recently. Tetanus within 5 Years?: No Allergies: Coded Allergies: paroxetine (Verified Allergy, Intermediate, SWELLING IN EXTREMETIES, 01/31/24) amoxicillin (Verified Allergy, Unknown, 01/31/24) clavulanic acid (Verified Allergy, Unknown, 01/31/24) shellfish derived (Verified Allergy, Unknown, 01/31/24) clonazepam (Verified Adverse Reaction, Severe, CAUSED SEVERE SUICIDAL THOUGHTS, 01/31/24) Active Prescriptions See Medication Reconciliation Form. Medication Reconciliation Scheduled Cyclobenzaprine* (Cyclobenzaprine*), 1 TAB PO Q8H Cyclobenzaprine* (Cyclobenzaprine*), 1 TAB PO HS Hydrocortisone (hydrocortisone 1% cream), 1 APPLIC TOP Q12H Ibuprofen (Ibuprofen), 1 TAB PO Q8H Methylprednisolone (Medrol Dosepak), 4 MG PO DAILY Ondansetron Hcl (Zofran), 1 TAB PO Q6H Trazodone HCl (Trazodone HCl), 2 TAB PO HS, (Reported) Scheduled PRN Albuterol Sulfate (Proair Hfa), 2 PUFFS IH Q4H PRN for SOB or wheezing, (Reported) Alprazolam (Alprazolam), 0.5 TAB PO QID PRN for for anxiety/agitation, (Reported) Past Medical History Past Medical History: Hypertension, *GI/HEPATOBILIARY*, Anxiety Past Surgical History: , hysterectomy Patient History: FH: CVA (cerebrovascular accident) Paternal Grandfather Smoking Status: Never smoker Alcohol Use: None Drug Use: none Lives with: Family Lives In: Home Occupation: employed Review of Systems ROS All review of systems negative except as per HPI Physical Exam Vital Signs: Temperature: 98.0, Heart Rate: 120, Respiratory Rate: 16, BP: 168/111, Pulse Oximetry: 100, Weight: 68.000 Oxygen Flow Rate: 0 Physical Exam General: Patient is awake, alert, oriented x4 in no acute distress and well appearing.~ Head: Normocephalic and atraumatic. Eyes: Conjunctival normal. EOMI. PERRL. ENT: Mucous membranes moist. Neck: Supple, trachea is midline. Chest: Clear to auscultation bilaterally without rales, rhonchi, or wheezes. There is no accessory muscle use or retractions. Tenderness to palpation to lower sternum in right costal border. No appreciable mass/hernia or skin changes/bruising Cardiac: RRR without murmurs, gallops, or rubs. Progress Results/Orders Results/Orders Orders - URIEL BRANDON MD Chest,Two Views (10/02/24 20:52) Completed Orders - URIEL BRANDON MD Chest,Two Views (10/02/24 20:52) Ondansetron Disint. Tablet (Zofran Odt T (10/02/24 20:55) Hydrocodone/Apap 5/325mg Tab ([place] 5/32 (10/02/24 20:55) Acetaminophen 325mg Tablet (Tylenol Tabl (10/02/24 20:55) Ibuprofen Tablet (Motrin Tablet) (10/02/24 20:55) Medications Received in ER Medications (Trade) Dose Ordered Sig/Jose Luis Route PRN Reason Start Time Stop Time Status Last Admin Dose Admin (Zofran ODT tablet) 4 mg ONCE ONCE PO 10/02/24 20:55 10/02/24 20:56 DC 10/02/24 21:10 4 MG ([place] 5/325mg tablet) 1 tab ONCE ONCE PO 10/02/24 20:55 10/02/24 20:56 DC 10/02/24 21:11 1 TAB (Tylenol tablet) 650 mg ONCE ONCE PO 10/02/24 20:55 10/02/24 21:02 DC 10/02/24 21:12 650 MG (Motrin tablet) 800 mg ONCE ONCE PO 10/02/24 20:55 10/02/24 20:56 DC 10/02/24 21:12 800 MG Vital Signs 10/02/24 10/02/24 10/02/24 18:01 18:50 21:11 Temp 98.0 Pulse 120 Resp 16 16 18 B/P (MAP) 168/111 Pulse Ox 100 O2 Flow Rate 0 Medical Decision Making Findings Patient presents to the emergency room with chest pain as per HPI. Differentials include but are not limited to costochondritis, hernia, ACS, reflux. Given pleuritic chest pain along with tenderness to palpation I feel patient is suffering from costochondritis. I have considered aortic pathology as well as pulmonary embolism but given physical exam and history I do not believe this is the case. She has already established with a primary care provider regarding this diagnosis and has a CT pending. He had not feel an emergent CT scan is necessary. Departure Disposition: HOME / SELF CARE / HOMELESS Impression: Primary Impression: Costochondritis Condition: Stable Discharge Instructions: Costochondritis Referrals: NO PRIMARY CARE PROVIDER (PCP) Prescriptions Hydrocodone Bit/Acetaminophen 5/325 MG ([place] 5/325 MG) 5 Mg/325 Mg Tablet 1 TAB PO Q4-6 hours PRN for pain, #10 TAB Prov: URIEL BRANDON MD 10/02/24 Education Educated: Patient Educated regarding: diagnosis, treatment, need for follow up Signature Scribe Signature: No scribe Attestation: The note accurately reflects work and decisions made by me.Uriel Brandon MD 10/02/24 21:32 URIEL BRANDON MD Oct 02, 2024 20:57
[2024-10-02] MEDS: ondansetron 4mg rapidly disintigrating tab PO ONE (21:10)
[2024-10-02] MEDS: HYDROcodone/acetaminophen 5mg/325mg tablet PO ONE (21:11)
[2024-10-02] MEDS: acetaminophen 325mg tablet PO ONE (21:12)
[2024-10-02] MEDS: ibuprofen tablet 400 MG TABLET PO ONE (21:12)
--- NOTE | 2024-10-02 21:22 | RADIOLOGY REPORT ---
EXAM: DI CHEST,TWO VIEWS TECHNIQUE: Two radiographic views of the chest CLINICAL HISTORY: cp COMPARISON: None Findings/Impression: Frontal and lateral chest radiographs demonstrate no acute osseous or superficial soft tissue abnorma lities. The trachea is midline. The cardiac silhouette and mediastinum are within normal limits. No pneumothorax, pleural effusions, or consolidations.
[2024-10-02] MEDS ORDERED: HYDR-3965 PO (21:32)
[2024-10-02 21:53] VITALS: BP 134/80; PULSE 80; RESP 16; TEMP 98.1; O2SAT 99
== END 2024-10-02 21:59 | disposition home or self-care (01) ==
LOC: ER 17:59
DX: M94.0 Chondrocostal junction syndrome [Tietze] (principal); I10 Essential (primary) hypertension; F41.9 Anxiety disorder, unspecified; Z79.52 Long term (current) use of systemic steroids; Z90.710 Acquired absence of both cervix and uterus; Z88.8 Allergy status to other drugs, medicaments and biological substances; Z88.1 Allergy status to other antibiotic agents; Z91.013 Allergy to seafood; Z79.899 Other long term (current) drug therapy
CPT/HCPCS: 71046; 99284

== ENCOUNTER 2024-12-16 08:25 | Outpatient (CLI) | payer MEDICAID ==
--- NOTE | 2024-12-16 13:03 | RADIOLOGY REPORT ---
CLINICAL INDICATION: PAIN IN RIGHT ANKLE AND JOINTS OF RIGHT FOOT COMPARISON: DI FOOT, COMPLETE (3VW MIN) on DOS: 08/21/24 TECHNIQUE: Multiplanar, multisequence MRI of the right foot was performed without intravenous contras t. Contrast: None. INTERPRETATION: Bones: No evidence of acute fracture. There is no marrow replacing lesion. 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 Small cysts on both sides of the pseudoarthrosis. Milvia int spaces are otherwise maintained. Soft tissues: The Lisfranc ligament is intact. The medial and lateral collateral ligaments are intac t at the metatarsophalangeal joints. The flexor and extensor tendons are intact. There is no planta r plate tear. There is no soft tissue mass or fluid collection. The intrinsic muscles of the foot a re unremarkable. IMPRESSION: 1. 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 2. No soft tissue injury in the right foot. HS:Y
== END 2024-12-16 23:59 | disposition home or self-care (01) ==
LOC: MRI02 08:25
PROVIDERS: ATTEND Podiatrist
DX: M19.071 Primary osteoarthritis, right ankle and foot (principal); M25.571 Pain in right ankle and joints of right foot
CPT/HCPCS: 73721

== ENCOUNTER 2025-02-23 13:55 | Outpatient (CLI) | payer MEDICAID ==
--- NOTE | 2025-02-24 08:59 | RADIOLOGY REPORT ---
INDICATION: INTRA-ABD AND PELVIC SWELLING, MASS AND LUMP, UNSP SITE TECHNIQUE: Multiple real-time grayscale transabdominal and transvaginal sonographic images along with color and duplex Doppler of the uterus and ovaries were obtained. COMPARISON: CT ABDOMEN PELVIS on DOS: 11/13/20 FINDINGS: Status post hysterectomy. The right ovary is not visualized, which may be obscured by bowel gas. The left ovary is not visualized likely removed. IMPRESSION: Status post hysterectomy. The right ovary is not visualized, which may be obscured by bowel gas. The left ovary is not visualized likely removed. [facility]
== END 2025-02-23 23:59 | disposition home or self-care (01) ==
LOC: RAD 13:55
DX: N83.201 Unspecified ovarian cyst, right side (principal); R10.20 Pelvic and perineal pain unspecified side; R19.00 Intra-abdominal and pelvic swelling, mass and lump, unspecified site; Z90.710 Acquired absence of both cervix and uterus
CPT/HCPCS: 76830; 76857